=== PATIENT | female | born 1950 | race Caucasian/White ===

== ENCOUNTER 2023-08-12 05:09 | Day surgery (SDC) | payer MEDICARE ==
[2023-08-08 15:11] LABS: BASOPHILS % (AUTO) 0.5 % (0-1); EOSINOPHILS % (AUTO) 0.3 % (0-6); LYMPHOCYTES # (AUTO) 2.1 X10'3 (1.1-4.8); LYMPHOCYTES % (AUTO) 20.3 % (21-51); MEAN CORPUSCULAR HEMOGLOBIN 32.2 PG (27.0-31.0); MEAN CORPUSCULAR HGB CONC 32.5 g/dL (33.0-36.5); MEAN CORPUSCULAR VOLUME 99.2 FL (78-98); MEAN PLATELET VOLUME 8.9 FL (7.4-10.4); MONOCYTES # (AUTO) 0.6 X10'3 (0-0.9); NEUTROPHILS # (AUTO) 7.4 X10'3 (1.8-7.7); NEUTROPHILS % (AUTO) 72.9 % (42-75); PRE OP HEMATOCRIT 40.5 % (35.0-45.0); PRE OP HEMOGLOBIN 13.1 g/dL (12.0-16.0); PRE OP PLATELET COUNT 281 X10'3 (140-440); PRE OP WHITE BLOOD COUNT 10.2 10'3 (4.8-10.8); RED BLOOD COUNT 4.08 X10'6 (4.20-5.60); RED CELL DISTRIBUTION WIDTH 14.2 % (11.5-14.5)
[2023-08-08 15:21] LABS: ALBUMIN 3.6 G/DL (3.4-5.0); ALBUMIN/GLOBULIN RATIO 0.7 (1.1-1.5); ALKALINE PHOSPHATASE 102 IU/L (46-116); BLOOD UREA NITROGEN 17 MG/DL (7-18); BUN/CREATININE RATIO 16.5 (10.0-20.0); CALCIUM 9.6 MG/DL (8.5-10.1); CHLORIDE 98 MMOL/L (99-107); CREATININE 1.03 MG/DL (0.40-0.90); PRE OP ALT 24 U/L (30-65); PRE OP ANION GAP 11 (8-16); PRE OP AST 25 U/L (10-37); PRE OP BILIRUB, TOTAL 0.6 MG/DL (0.0-1.0); PRE OP GLUCOSE 93 MG/DL (70-104); PRE OP POTASSIUM 3.6 MMOL/L (3.4-5.1); PRE OP SODIUM 139 MMOL/L (135-145); TOTAL CARBON DIOXIDE 30.2 MMOL/L (24-32); TOTAL PROTEIN 8.5 G/DL (6.4-8.2); eGFR 53 ML/MIN
[~2023-08-12] VITALS: Ht 165.1 cm; Wt 107.2 kg
[2023-08-12] VITALS (10 sets, daily range): BP systolic 129–166; BP diastolic 63–87; PULSE 74–79; RESP 13–18; TEMP 97.1; O2SAT 94–98
[~2023-08-12 05:09] MED LIST: ALBU18HF2 INH; ALBU2.5V13 NEB; ATOR20TA66 PO; BECL10.62 INH; BUPIVACAINE liposomal/PF 13.3 MG/ML vial IM ONE; BUPIVAcaine 2.5mg/ml inj 50ml vial (contains preservative) ONE; BUPIVAcaine/PF 2.5mg/ml (0.25%) 10ml vial ONE; FLUT16SP13 BOTHNARES; HYDR25TA4 PO; LIDOcaine 1% (10mg/ml)w/preservative inj. 20ml MDV ONE; LIDOcaine 1% 30ml preserv. free vial ONE; LOSA100T58 PO; METO-411 PO; MONT-40 PO; NORT50CA PO; RIVA20TA PO; TRAZ-256 PO; ringers solution, lacted 1,000 ML IV SCH
[2023-08-12] MEDS ORDERED: famotidine 20mg tablet PO ONE (05:30)
[2023-08-12] MEDS ORDERED: albuterol 2.5 MG/3 ML nebule NEB ONE (05:30)
[2023-08-12] MEDS ORDERED: DOCUMENT DATE & TIME OF BETA-BLOCKER PO ONE (05:30)
[2023-08-12] MEDS ORDERED: HYDR-4069 PO (06:10)
[2023-08-12] MEDS ORDERED: epiNEPHrine 1 MG/ML 1 ml ampule **BRONCH ONLY ONE (06:34)
[2023-08-12] MEDS ORDERED: LIDOCAINE 4% (40MG/ML) topical solution 50ml **BRONCH ONLY ONE (06:35)
[2023-08-12] MEDS ORDERED: fentaNYL/PF 50MCG/1 ML 2ML syringe ONE (07:27)
[2023-08-12] MEDS ORDERED: midazolam 1 mg/ML 2ml injection ONE (07:28)
[2023-08-12] MEDS ORDERED: rocuronium 10mg/ml inj IV ONE (07:32)
[2023-08-12] MEDS ORDERED: glycopyrrolate 0.2mg/ml inj ONE (07:32)
[2023-08-12] MEDS ORDERED: LIDOcaine 2% (20mg/ml) 5ml vial ONE (07:32)
[2023-08-12] MEDS ORDERED: dexamethasone sod phosphate 4mg/ml inj. ONE (07:32)
[2023-08-12] MEDS ORDERED: propofol inj 20 ML IV ONE (07:32)
[2023-08-12] MEDS ORDERED: neostigmine methylsulfate 1 MG/ML 10ml vial ONE (07:32)
[2023-08-12] MEDS ORDERED: ondansetron/PF 4mg/2ml inj ONE (07:33)
[2023-08-12] MEDS ORDERED: fentaNYL/PF 50MCG/1 ML 2ML syringe IV PRN ×2 (07:40)
[2023-08-12] MEDS ORDERED: hydrALAZINE 20mg/ml inj. IV PRN (07:40)
[2023-08-12] MEDS ORDERED: labetalol 20mg/4ml (5mg/ml) syringe IV PRN (07:40)
[2023-08-12] MEDS ORDERED: ondansetron/PF 4mg/2ml inj IV PRN (07:40)
[2023-08-12] MEDS ORDERED: ringers solution, lacted 1,000 ML IV SCH (07:40)
[2023-08-12] MEDS ORDERED: HYDROmorphone/PF 0.2 MG/ML SYRINGE IV PRN ×2 (07:40)
[2023-08-12] MEDS ORDERED: sevoflurane 250ml liquid IH ONE (07:46)
== END 2023-08-12 09:56 | disposition home or self-care (01) ==
LOC: PAS 05:09
PROVIDERS: ATTEND Internal Medicine Critical Care Medicine
DX: R91.8 Other nonspecific abnormal finding of lung field (principal); C34.32 Malignant neoplasm of lower lobe, left bronchus or lung; J44.9 Chronic obstructive pulmonary disease, unspecified; G47.30 Sleep apnea, unspecified; I47.10 Supraventricular tachycardia, unspecified; D68.51 Activated protein C resistance; I10 Essential (primary) hypertension; E66.9 Obesity, unspecified; Z68.39 Body mass index [BMI] 39.0-39.9, adult; I27.20 Pulmonary hypertension, unspecified; Z86.718 Personal history of other venous thrombosis and embolism; Z88.5 Allergy status to narcotic agent; Z98.890 Other specified postprocedural states; Z79.899 Other long term (current) drug therapy
CPT/HCPCS: 31623; 31624; 31628; 31629; 31653; 36415; 71045; 80053; 82948; 85025; 87015; 87070; 87116; 87206; 94760; C9290; J1100; J2250; J2405; J2704; J2710; J3010; J3490; J7120; Z7506; Z7508; Z7512; 31622; 31625; 31626; 31627; 31654; A4615; A4618; J0171